=== PATIENT | male | born 1995 | race Caucasian/White ===

== ENCOUNTER 2016-11-03 20:33 | Emergency (ER) | payer SELFPAY ==
[~2016-11-03] VITALS: Ht 170.2 cm; Wt 65.0 kg
--- NOTE | 2016-11-03 21:02 | PD ---
HPI Chief Complaint: altered mental status Time Seen by Provider: 20:46 Travel History International Travel<30 days: No Contact w/Intl Traveler<30days: No Traveled to known affect area: No History of Present Illness HPI 21-year-old male was brought in by EMS after a seizure. Patient was witnessed to have a seizure which lasted about [address] Bystanders called EMS. Patient was lethargic at the scene. Patient was brought to the ED for evaluation. Upon arrival patient's awake alert oriented 3. Patient denies any headache. Patient denies any chest pain or shortness of breath. Patient denies abdominal pain. Patient denies any focal weakness and numbness of extremity. Patient refused any treatment and wants to leave AMA. PFSH Social History Tobacco Use: No Allergies-Medications (Allergen,Severity, Reaction): Coded Allergies: No Known Allergies (Unverified , 11/03/16) Reported Meds & Prescriptions Reported Meds & Active Scripts Active No Active Prescriptions or Reported Medications Review of Systems ROS Limitations: Altered Mental Status General / Constitutional: No: Fever Eyes: No: Visual changes HENT: No: Headaches Cardiovascular: No: Chest Pain or Discomfort Respiratory: No: Shortness of Breath Gastrointestinal: No: Abdominal Pain Genitourinary: No: Dysuria Musculoskeletal: No: Pain Skin: No Rash Neurologic: No: Weakness Psychiatric: No: Depression Endocrine: No: Polydipsia Hematologic/Lymphatic: No: Easy Bruising Physical Exam Narrative Patient refused physical exam. MDM Medical Decision Making Medical Screen Exam Complete: Yes Emergency Medical Condition: Yes Differential Diagnosis Differential diagnosis including Seizure, electrolyte imbalance, substance abuse. Narrative Course 21-year-old male was brought in by EMS after witnessed seizure. Patient awake alert oriented 3 now. Patient refused any treatment. Patient wants to leave AMA. Diagnosis Primary Impression: Seizure Additional Impression: Left against medical advice Scripts No Active Prescriptions or Reported Meds Disposition: 07 AGAINST MEDICAL ADVICE Condition: Avni Anthony MD Nov 03, 2016 21:02
== END 2016-11-03 21:19 | disposition left against medical advice (07) ==
LOC: NEPE 20:33
DX: R56.9 Unspecified convulsions (principal)
CPT/HCPCS: 99284